=== PATIENT | female | born 1965 | race Caucasian/White ===

== ENCOUNTER 2018-10-02 09:31 | Observation (INO) | payer OTHER ==
[~2018-10-02] VITALS: Ht 162.6 cm; Wt 80.0 kg
[~2018-10-02 09:31] MED LIST: ATEN50TA; ESCI20TA; LEVO112T42; PANT40TA3; VALS160T20
[2018-10-02] MEDS ORDERED: ASPIRIN 325 MG TAB PO STA (09:51)
[2018-10-02] MEDS ORDERED: NITROGLYCERIN (SL) 0.4 MG TAB SL PRN (10:00)
--- NOTE | 2018-10-02 11:36 | ERD ---
ER Documentation Chief Complaint Chief Complaint CHEST PAIN AND NAUSEA SINCE THIS MORNING HPI This is a 53-year-old female with a past medical history of hypertension. The patient states that an hour prior to arrival she developed a sudden onset of chest pressure. She stated it was mid substernal and felt as though somebody was sitting on her chest. This lasted for roughly 30 minutes. The pain did radiate to her left arm but not to her neck or jaw. She had associated symptoms of nausea but did not experience any diaphoresis or emesis. She stated she had a similar episode in 2009. She was seen by a business administrator at that time and stated she had some tests run by the business administrator that were found to be normal. Since that time she states she is never seen a business administrator. She also states she is been undergoing a significant amount of stress several months ago she recently lost both her mother and her father. However she denies any suicidal homicidal thoughts or ideations. She does not smoke tobacco. She denies any abdominal pain. She has no shortness of breath. She denies any recent travel or prolonged immobilization ROS All systems reviewed and are negative except as per history of present illness. Medications Home Meds Reported Medications Pantoprazole* (Protonix*) 40 Mg Tablet.dr 08/19/09 Escitalopram Oxalate* (Lexapro*) 20 Mg Tablet 08/19/09 Levothyroxine Sodium* (Levoxyl*) 112 Mcg Tablet 08/19/09 Valsartan* (Diovan*) 160 Mg Tablet 08/19/09 Atenolol* (Atenolol*) 50 Mg Tablet 08/19/09 Allergies Allergies: Coded Allergies: Acetaminophen (Verified Allergy, Unknown, 07/27/10) Hydrocodone (Verified Allergy, Unknown, 07/27/10) Ibuprofen (Verified Allergy, Unknown, 07/27/10) Morphine (Verified Allergy, Unknown, 07/27/10) PMhx/Soc History of Surgery: Yes (2003 GALL BLADDER REMOVED 1993 TUBAL LIGATION ) Anesthesia Reaction: No Hx Neurological Disorder: No Hx Respiratory Disorders: No Hx Cardiac Disorders: Yes (HTN) Hx Psychiatric Problems: Yes (DEPRESSION, HYPOTHYROID) Hx Miscellaneous Medical Probl: No Hx Alcohol Use: No Hx Substance Use: No Hx Tobacco Use: No Smoking Status: Never smoker Physical Exam Vitals Vital Signs Date Temp Pulse Resp B/P (MAP) Pulse Ox O2 O2 Flow FiO2 Time Delivery Rate 10/02/18 Nasal 2 09:50 Cannula 10/02/18 98.2 70 16 150/94 100 09:50 (112) Physical Exam Constitutional:Well-developed. Well-nourished. HEENT:Normocephalic. Atraumatic.Pupils were equal round reactive to light. Moist mucous membranes.No tonsillar exudates. Neck: No nuchal rigidity. No lymphadenopathy. No posterior cervical spine tenderness or step-offs. Respiratory: Not using accessory muscles of respiration.Lungs were clear to auscultation bilaterally. No rhonchi. No rales. No wheezing. Cardiovascular: Regular rate regular rhythm.No murmurs. No rubs were appreciated.S1, S2 normal. Distal pulses are palpable 2+ bilaterally. GI: Abdomen was soft. Nontender. Non Distended. No pulsatile abdominal masses or bruits. No rebound. No guarding. Bowel sounds were present and normal. Muscle skeletal: Full range of motion of both the upper and lower extremities bilaterally.Normal muscle tone.No assymetrical calf tenderness or swelling. Skin: No petechia, no purpura. No lesions on the palms or the soles of the feet. No maculopapular rash. NEURO: Patient was alert, awake, orientated x3.No facial droop. Gait observed and normal with no ataxia.Speech had regular rate and rhythm. No focal neurological deficits. Result Diagram: 10/02/18 1017 10/02/18 1017 Results 24 hrs Laboratory Tests Test 10/02/18 10:17 White Blood Count 4.2 10^3/ul Red Blood Count 4.60 10^6/ul Hemoglobin 13.8 g/dl Hematocrit 41.0 % Mean Corpuscular Volume 89.1 fl Mean Corpuscular Hemoglobin 30.0 pg Mean Corpuscular Hemoglobin Concent 33.7 g/dl Red Cell Distribution Width 12.5 % Platelet Count 239 10^3/UL Mean Platelet Volume 9.4 fl Immature Granulocytes % 0.200 % Neutrophils % 53.0 % Lymphocytes % 39.1 % Monocytes % 6.2 % Eosinophils % 1.0 % Basophils % 0.5 % Nucleated Red Blood Cells % 0.0 /100WBC Immature Granulocytes # 0.010 10^3/ul Neutrophils # 2.2 10^3/ul Lymphocytes # 1.6 10^3/ul Monocytes # 0.3 10^3/ul Eosinophils # 0.0 10^3/ul Basophils # 0.0 10^3/ul Nucleated Red Blood Cells # 0.0 10^3/ul Prothrombin Time 12.2 Sec Prothrombin Time Ratio 1.0 INR International Normalized Ratio 0.89 Activated Partial Thromboplast Time 30.4 Sec Sodium Level 138 mmol/L Potassium Level 3.8 mmol/L Chloride Level 102 mmol/L Carbon Dioxide Level 28 mmol/L Anion Gap 8 Blood Urea Nitrogen 13 mg/dl Creatinine 0.74 mg/dl Est Glomerular Filtrat Rate mL/min > 60 mL/min Glucose Level 104 mg/dl Calcium Level 10.2 mg/dl Total Bilirubin 0.6 mg/dl Direct Bilirubin 0.00 mg/dl Indirect Bilirubin 0.6 mg/dl Aspartate Amino Transf (AST/SGOT) 28 IU/L Alanine Aminotransferase (ALT/SGPT) 18 IU/L Alkaline Phosphatase 98 IU/L Creatine Kinase 74 IU/L Creatine Kinase Index 1.1 Creatinine Kinase MB (Mass) 0.80 ng/ml Troponin I < 0.012 ng/ml B-Type Natriuretic Peptide 22 PG/ML Total Protein 7.9 g/dl Albumin 4.5 g/dl Globulin 3.40 g/dl Albumin/Globulin Ratio 1.32 Current Medications Medications Dose Sig/Jake Start Time Status Last (Trade) Ordered Route PRN Stop Time Admin Dose Reason Admin Aspirin 325 mg ONCE STAT 10/02/18 DC (Aspirin) PO 09:51 10/02/18 09:58 1 tab Q5M UP TO 3 10/02/18 Nitroglycerin DOSES PRN 10:00 SL .CHEST (Nitroglyceri PAIN n (Sl Tab) 0.4 Mg) Procedures/MDM The patient presented to the emergency department with chest pain. My clinical evaluation and workup was to distinguish minor causes of chest pain from acute life threatening conditions such as myocardial infarction, pulmonary embolism, aortic dissection, esophageal rupture, cardiac tamponade. The patient was placed on a shot man and continuous pulse oximetry. IV access established by nursing staff. Patient was given aspirin and nitroglycerin with no improvement of her chest pain. Therefore I did feel the patient required admission for serial twelve-lead EKG tracings and cardiac set of enzymes. The patient's troponin was within normal limits and there is no electrolyte abnormalities. A 1 view chest radiograph showed no infiltrates no pneumothorax or pleural effusions. 12 Lead EKG tracing ordered and reviewed by myself showed: Normal sinus rhythm of 62 bpm and no arrhythmia. VT interval normal. QRS duration normal. No ST segment elevation No ST segment depression. No changes consistent with acute ischemia. Departure Diagnosis: Primary Impression: Chest pain Chest pain type: unspecified Qualified Codes: R07.9 - Chest pain, unspecified Condition: Serious RICARDA RENTERIA MD Oct 02, 2018 11:36
[2018-10-02] MEDS ORDERED: ONDANSETRON 4 MG INJ IV PRN (12:00)
[2018-10-02] MEDS ORDERED: ATEN50TA PO (12:53)
[2018-10-02] MEDS ORDERED: OMEP40CA6 PO ×2 (12:54→12:55)
[2018-10-02] MEDS ORDERED: VALS320T2 PO (12:54)
[2018-10-02] MEDS ORDERED: LEVO125T7 PO (12:55)
[2018-10-02] MEDS ORDERED: NAPR-958 PO (12:55)
[2018-10-02] MEDS ORDERED: AMIT25TA9 PO (12:57)
[2018-10-02] MEDS ORDERED: CYCL10TA7 PO (12:57)
[2018-10-02 13:35] VITALS: BP 135/81; PULSE 63; RESP 20
[2018-10-02 13:37] VITALS: Ht 162.6 cm; Wt 80.0 kg
[2018-10-02 13:39] VITALS: PULSE 63
[2018-10-02] MEDS ORDERED: HYDROCODONE/APAP (5/325) TAB PO PRN (14:00)
[2018-10-02] MEDS ORDERED: NACL 0.9% 3 ML SYG IV SCH (14:00)
--- NOTE | 2018-10-02 15:12 | HP ---
Date/Time of Note Date/Time of Note DATE: 10/02/18 TIME: 15:09 Assessment/Plan VTE Prophylaxis Pharmacological prophylaxis: heparin Lines/Catheters IV Catheter Type (from Nrsg): Saline Lock Assessment/Plan Hospital Course 53 yo female with h/o hypertension presents with chest pain syndrome - Rule out for ACS with troponins - EKG negative for ischemia, normal - Check TTE - Observe overnight - No chest tenderness to suspect MSK pain, no SOB to suspect PE (wells score 0) Result Diagram: 10/02/18 1017 10/02/18 1017 Results 24hrs Laboratory Tests Test 10/02/18 10:17 White Blood Count 4.2 L Red Blood Count 4.60 Hemoglobin 13.8 Hematocrit 41.0 Mean Corpuscular Volume 89.1 Mean Corpuscular Hemoglobin 30.0 Mean Corpuscular Hemoglobin Concent 33.7 Red Cell Distribution Width 12.5 Platelet Count 239 Mean Platelet Volume 9.4 Immature Granulocytes % 0.200 Neutrophils % 53.0 Lymphocytes % 39.1 Monocytes % 6.2 Eosinophils % 1.0 Basophils % 0.5 Nucleated Red Blood Cells % 0.0 Immature Granulocytes # 0.010 Neutrophils # 2.2 Lymphocytes # 1.6 Monocytes # 0.3 Eosinophils # 0.0 Basophils # 0.0 Nucleated Red Blood Cells # 0.0 Prothrombin Time 12.2 Prothrombin Time Ratio 1.0 INR International Normalized Ratio 0.89 Activated Partial Thromboplast Time 30.4 Sodium Level 138 Potassium Level 3.8 Chloride Level 102 Carbon Dioxide Level 28 Anion Gap 8 Blood Urea Nitrogen 13 Creatinine 0.74 Est Glomerular Filtrat Rate mL/min > 60 Glucose Level 104 Calcium Level 10.2 Total Bilirubin 0.6 Direct Bilirubin 0.00 Indirect Bilirubin 0.6 Aspartate Amino Transf (AST/SGOT) 28 Alanine Aminotransferase (ALT/SGPT) 18 Alkaline Phosphatase 98 Creatine Kinase 74 Creatine Kinase Index 1.1 Creatinine Kinase MB (Mass) 0.80 Troponin I < 0.012 B-Type Natriuretic Peptide 22 Total Protein 7.9 Albumin 4.5 Globulin 3.40 H Albumin/Globulin Ratio 1.32 HPI/ROS Admit Date/Time Admit Date/Time Oct 02, 2018 at 11:33 Hx of Present Illness 53 yo female with ho hypertension presents with episode of chest pain Patient in previously good state of health. 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 Sitting at rest began to feel substernal chest pain and tightness. [place] like pressure she says. Episode lasted a few minutes and self resolved. No associated SOB, no palpitations. She has never had exertional chest pain before. Currently feels well. No symptoms since this episode ended. No cough or URI symptoms. ROS Constitutional: no complaints, improved Eyes: no complaints ENT: no complaints Respiratory: no complaints Cardiovascular: no complaints Gastrointestinal: no complaints Genitourinary: no complaints Musculoskeletal: no complaints Skin: no complaints Neurologic: no complaints Endocrine: no complaints Lymphatic: no complaints Psychological: no complaints, nl mood/affect Immunologic: no complaints PMH/Family/Social Past Medical History Medical History: hypertension Medications Current Medications IV Flush (NS 3 ml) 3 ml PER PROTOCOL IV ; Start 10/02/18 at 14:00 Acetaminophen/ Hydrocodone Bitart ([place] (5/325)) 2 tab Q6H PRN PO .SEVERE PAIN 7-10; Start 10/02/18 at 14:00; Status UNV Coded Allergies: hydrocodone (Verified Allergy, Unknown, 07/27/10) ibuprofen (Verified Allergy, Unknown, 07/27/10) morphine (Verified Allergy, Unknown, 07/27/10) Past Surgical History Past Surgical Hx: no surgical history Family History Significant Family History: no pertinent family hx Social History Alcohol Use: none Smoking Status: Never smoker Drug Use: none Exam/Review of Systems Vital Signs Vitals Vital Signs Date Temp Pulse Resp B/P (MAP) Pulse Ox O2 O2 Flow FiO2 Time Delivery Rate 10/02/18 63 13:39 10/02/18 98.0 20 135/81 99 13:35 (99) 10/02/18 Room Air 12:39 10/02/18 2 09:50 Exam Constitutional: alert, oriented, well developed Psych: no complaints, nl mood/affect Head: normocephalic, atraumatic Eyes: nl conjunctiva, EOMI, nl lids, nl sclera, PERRL ENMT: nl external ears & nose, nl lips & teeth, nl nasal mucosa & septum Neck: supple, non-tender Respiratory: clear to auscultation, normal air movement Cardiovascular: regular rate and rhythm, nl pulses Gastrointestinal: soft, nl liver, spleen, non-tender Musculoskeletal: nl extremities to inspection Extremities: normal pulses Neurological: FAGOT HEATER II-XII intact, nl mental status, nl speech, nl strength Skin: nl turgor; No rash or lesions Lymph: nl lymph nodes VICENTE BREEN MD Oct 02, 2018 15:12
[2018-10-02 15:45] VITALS: BP 113/72; PULSE 69; RESP 20
[2018-10-02 16:18] VITALS: PULSE 64
--- NOTE | 2018-10-02 18:40 | RADRPT ---
Echocardiogram Report Patient Name: MAY PERALESPatient ID: [id number] : 1965 (53y 6m)Study Date: 10/02/2018 2:06:58 PM Gender: FAccession #: [id number] Tech: David Silva [facility] Location: [facility] Ref.Physician: VICENTE BREEN Height(Cm): BSA: Weight(Kg): Quality: AdequateAccount #: Procedures: Echocardiographic Report: Transthoracic echocardiogram with complete 2D, M-Mode, and doppler examination. Indications: Chest Pain. Measurements: 2D/M Mode Doppler Measurement Value Normal Range Measurement Value Normal Range LVIDd 2D 4.4 [ 3.8 - 5.2 ] cm AV Peak Luke 1.2 [ 100.0 - 170.0 ] cm/sec LVIDs 2D 2.7 [ 2.2 - 3.5 ] cm AV Peak PG 6.0 [ 2.0 - 9.0 ] mmHg LVPWd 2D 1.2 [ 0.6 - 0.9 ] cm LVOT Peak Luke 1.0 [ 70.0 - 110.0 ] cm/sec IVSd 2D 1.1 [ 0.6 - 0.9 ] cm LVOT Peak PG 4.0 [ 2.0 - 6.0 ] mmHg AoR Diam 2D 3.4 [ 2.3 - 3.1 ] cm MV E Peak Luke 0.6 [ 60.0 - 130.0 ] cm/sec EDV 2D 88.2 [ 46.0 - 106.0 ] ml MV A Peak Luke 0.8 [ 100.0 - 120.0 ] cm/sec ESV 2D 27.0 [ 14.0 - 42.0 ] ml MV E/A 0.7 [ 0.8 - 1.5 ] ratio EF 2D 69.4 [ 54.0 - 74.0 ] percent MV Decel Time 275 [ 104 - 258 ] msec LA Dimen 2D 3.3 [ 2.7 - 3.8 ] cm Lat E` Luke 0.1 [ 10.0 - 15.0 ] cm/sec Lateral E/E` 9.7 [ 1.0 - 2.0 ] ratio Med E` Luke 0.1 cm/sec MV E/A 0.7 [ 0.8 - 1.5 ] ratio TR Peak Luke 2.5 [ 100.0 - 280.0 ] cm/sec TR Peak PG 25.0 mmHg RVSP 35.0 [ 10.0 - 36.0 ] mmHg Findings: Left Ventricle: Normal left ventricular systolic function. Normal left ventricular cavity size. Left ventricular wall thickness upper limits of normal. Ejection fraction is visually estimated at 65 %. Tissue Doppler/Mitral Doppler indices are consistent with impaired relaxation (Stage I diastolic dysfunction). Right Ventricle: Normal right ventricular size. Normal right ventricular systolic function. Left Atrium: The left atrium is normal in size. Right Atrium: The right atrium is normal in size. Mitral Valve: Mild mitral leaflet calcification. Mild mitral annular calcification. Trace mitral regurgitation. Aortic Valve: No significant aortic stenosis or insufficiency. Aortic cusps appear mildly calcified. Tricuspid Valve: Normal appearance of the tricuspid valve. Estimated peak PA systolic pressure 35 mmHg. There is mild tricuspid regurgitation. Pulmonic Valve: Pulmonic valve not well visualized. There is trace pulmonic regurgitation. Pericardium: Normal pericardium with no significant pericardial effusion. Aorta: Normal aortic root. IVC: Normal size and normal respiratory collapse consistent with normal right atrial pressure. Conclusions: Normal left ventricular systolic function. Normal left ventricular cavity size. Left ventricular wall thickness upper limits of normal. Ejection fraction is visually estimated at 65 %. Tissue Doppler/Mitral Doppler indices are consistent with impaired relaxation (Stage I diastolic dysfunction). Mild mitral leaflet calcification. Mild mitral annular calcification. Trace mitral regurgitation. No significant aortic stenosis or insufficiency. Aortic cusps appear mildly calcified. Normal appearance of the tricuspid valve. Estimated peak PA systolic pressure 35 mmHg. There is mild tricuspid regurgitation. Electronically Signed By: Zaid Barrett 2018-10-02 18:39:52 ZOEY
[2018-10-02 20:00] VITALS: BP 116/73; PULSE 80
[2018-10-02 21:42] VITALS: PULSE 75
[2018-10-03] VITALS (9 sets, daily range): BP systolic 98–142; BP diastolic 66–83; PULSE 51–116; RESP 16–20
--- NOTE | 2018-10-03 13:55 | PDOCDIS ---
Discharge Instructions DIAGNOSIS Discharge Diagnosis Chest pain syndrome; depression; modest obesity; acquired hypothyroidism; essential hypertension; diastolic dysfunction grade 1; status post cholecystectomy; status post tubal ligation CONDITION [id number] Patient Condition: [id number] Good HOME CARE INSTRUCTIONS: [id number] Diet Instructions: [id number] Reduced Sodium ACTIVITY: [id number] Activity Restrictions: [id number] No Restrictions FOLLOW UP/APPOINTMENTS Follow-up Plan Primary care physician JAMES Correa MD Oct 03, 2018 13:55
--- NOTE | 2018-10-03 13:55 | DS ---
Date/Time of Note Date/Time of Note DATE: 10/03/18 TIME: 13:53 Discharge Summary Admission/Discharge Info Admit Date/Time Oct 02, 2018 at 11:33 Discharge Date/Time October 03, 2018 Discharge Diagnosis Chest pain syndrome; depression; modest obesity; acquired hypothyroidism; essential hypertension; diastolic dysfunction grade 1; status post cholecystectomy; status post tubal ligation Patient Condition: Good Procedures Echocardiogram Hx of Present Illness Hx of Present Illness 53 yo female with ho hypertension presents with episode of chest pain Patient in previously good state of health. 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 Sitting at rest began to feel substernal chest pain and tightness. [place] like pressure she says. Episode lasted a few minutes and self resolved. No associated SOB, no palpitations. She has never had exertional chest pain before. Currently feels well. No symptoms since this episode ended. No cough or URI symptoms. Hospital Course [facility] 53-year-old woman who was admitted with chest pain syndrome that was atypical. She had negative cardiac enzymes and ruled out and also had a normal echocardiogram with a exception of modest diastolic dysfunction. She is stable and without symptoms and can be discharged home for outpatient follow-up with her primary care physician, Dr. Nicko Winters Home Meds Reported Medications Cyclobenzaprine Hcl* (Cyclobenzaprine Hcl*) 10 Mg Tablet, 10 MG PO QHS, #60 TAB 10/02/18 Amitriptyline Hcl* (Amitriptyline Hcl*) 25 Mg Tablet, 25 MG PO QHS, #30 TAB 10/02/18 Naproxen* (Naproxen*) 550 Mg Tablet, 550 MG PO BID PRN for PAIN AND/OR INFLAMMATION, TAB 10/02/18 Levothyroxine Sodium* (Levothyroxine Sodium*) 125 Mcg Tablet, 125 MCG PO BEFORE BREAKFAST, #30 TAB 10/02/18 Valsartan* (Diovan*) 320 Mg Tablet, 320 MG PO DAILY, TAB 10/02/18 Omeprazole* (Omeprazole*) 40 Mg Capsule., 40 MG PO AC BREAKFAST, #30 CAP 10/02/18 Discontinued Reported Medications Omeprazole* (Omeprazole*) 40 Mg Capsule., 40 MG PO AC BREAKFAST, #30 CAP 10/02/18 Atenolol* (Atenolol*) 50 Mg Tablet, 50 MG PO DAILY, #30 TAB 10/02/18 Pantoprazole* (Protonix*) 40 Mg Tablet. 08/19/09 Escitalopram Oxalate* (Lexapro*) 20 Mg Tablet 08/19/09 Levothyroxine Sodium* (Levoxyl*) 112 Mcg Tablet 08/19/09 Valsartan* (Diovan*) 160 Mg Tablet 08/19/09 Atenolol* (Atenolol*) 50 Mg Tablet 08/19/09 Follow-up Plan Primary care physician Dr. Nicko Winters Primary Care Provider Not On Staff Doctor Time spent on discharge: > 30 minutes Pending Labs Laboratory Tests Test 10/02/18 19:48 Troponin I < 0.012 ng/ml (0.000-0.120) JAMES FITZGERALD MD Oct 03, 2018 13:55
== END 2018-10-03 15:49 | disposition home or self-care (01) ==
LOC: E/R 09:31 → TEL 11:33
PROVIDERS: ADMIT Internal Medicine; ATTEND Internal Medicine
DX: R07.9 Chest pain, unspecified (principal); F32.9 Major depressive disorder, single episode, unspecified; I10 Essential (primary) hypertension; E03.9 Hypothyroidism, unspecified; E66.01 Morbid (severe) obesity due to excess calories; Z68.30 Body mass index [BMI] 30.0-30.9, adult
CPT/HCPCS: 36415; 71045; 80053; 82550; 82553; 83880; 84484; 85025; 85610; 85730; 93005; 93306; 99285; G0378; J2405